=== PATIENT | male | born 1960 | race Caucasian/White ===

== ENCOUNTER 2020-09-12 08:42 | Emergency (ER) | payer OTHER ==
[2020-09-12] MEDS ORDERED: MEDROL 4MG DOSEP4 MG PO (11:43)
[2020-09-12] MEDS ORDERED: PERCOCET 10-321 EACH PO (11:43)
[2020-10-04] MEDS ORDERED: OXYCONTIN10 MG PO (14:31)
[2020-10-04] MEDS ORDERED: MORPHINE 30MG E30 MG PO (14:32)
[2020-10-04] MEDS ORDERED: DEXAMETHASONE 2M2 MG PO (14:32)
[2020-10-04] MEDS ORDERED: DAILY VALUE1 EACH PO (14:33)
[2020-10-04] MEDS ORDERED: PRAVASTATIN SOD20 MG PO (14:33)
[2020-10-04] MEDS ORDERED: PROTONIX 40MG T40 MG PO (14:33)
[2020-10-04] MEDS ORDERED: LISINOPRIL20 MG PO (14:33)
[2020-10-04] MEDS ORDERED: ELDERBERRY PO (14:34)
[2020-10-04] MEDS ORDERED: VITAMIN D PO (14:34)
[2020-10-04] MEDS ORDERED: FLONASE ALLER15.8 ML (14:35)
[2020-10-04] MEDS ORDERED: ZYRTEC10 M3 PO (14:35)
[2020-10-04] MEDS ORDERED: COLACE100 MG PO (14:35)
== END 2020-09-12 12:00 | disposition home or self-care (01) ==
LOC: FER 08:42
DX: M54.42 Lumbago with sciatica, left side (principal); M54.41 Lumbago with sciatica, right side; I10 Essential (primary) hypertension; F17.200 Nicotine dependence, unspecified, uncomplicated
CPT/HCPCS: 96372; 99283; J1170

== ENCOUNTER → 2020-10-07 | Day surgery (SDC) | payer OTHER ==
[~2020-10-07] VITALS: Ht 190.5 cm; Wt 105.2 kg
[~2020-10-07] MED LIST: CEFDINIR300 MG PO; COLACE100 MG PO; COMPAZINE10 MG PO; DAILY VALUE1 EACH PO; DEXAMETHASONE 2M2 MG PO; ELDERBERRY PO; ENSURE LIQUID237 ML PO; FLONASE ALLER15.8 ML; LASIX20 MG PO; LEVOTHYROXINE25 MC1 PO; LISINOPRIL20 MG PO; MEDROL 4MG DOSEP4 MG PO; MEGACE ORA6 TSP/1 OZ PO; MORPHINE 30MG E30 MG PO; OXYCODONE HCL10 MG PO; OXYCONTIN10 MG PO; PEPCID AC20 MG PO; PERCOCET 10-321 EACH PO; PRAVASTATIN SOD20 MG PO; PROTONIX 40MG T40 MG PO; VENTOLIN HFA IN18 GM INH; VITAMIN D PO; ZYRTEC10 M3 PO
[2020-10-07 10:56] LABS: BASOPHIL 0.3 % (0-2); EOSINOPHIL 0.3 % (0-5); HCT 39.9 % (42.0-52.0); HGB 13.3 g/dl (13.2-18.0); LYMPHOCYTE 12.7 % (15-48); MCH 30.5 pg (25.0-31.0); MCHC 33.3 g/dL (32.0-36.0); MCV 91.5 fL (78.0-100.0); MONOCYTE 9.5 % (0-12); MPV 8.8 fL (6.0-9.5); NEUTROPHIL 74.1 % (41-80); NRBC 0.1; PLT 417 K/uL (150-400); RBC 4.36 M/uL (4.70-6.00); RDW 13.8 % (11.5-14.0); WBC 17.4 K/uL (4.0-10.5)
[2020-10-07 11:13] LABS: INR 1.04 (0.9-1.2); PROTHROMBIN TIME 12.9 SECONDS (11.4-13.6); PTT 26.4 SECONDS (22.2-34.7)
== END | disposition home or self-care (01) ==
LOC: FAS 09:56
PROVIDERS: Anesthesiology
DX: C79.49 Secondary malignant neoplasm of other parts of nervous system (principal); K21.9 Gastro-esophageal reflux disease without esophagitis; M19.90 Unspecified osteoarthritis, unspecified site; F17.210 Nicotine dependence, cigarettes, uncomplicated; I10 Essential (primary) hypertension; Z20.822 Contact with and (suspected) exposure to COVID-19; Z91.041 Radiographic dye allergy status; Z79.899 Other long term (current) drug therapy; Z98.890 Other specified postprocedural states; Z80.0 Family history of malignant neoplasm of digestive organs; Z82.49 Family history of ischemic heart disease and other diseases of the circulatory system
CPT/HCPCS: 36415; 71045; 76000; 85025; 85610; 85730; C1788; J0690; J1644; J2250; J2405; J2704; J3010; J7120

== ENCOUNTER 2021-01-12 09:22 | Inpatient (IN) | payer OTHER ==
[~2021-01-12] VITALS: Ht 190.5 cm; Wt 104.4 kg
[~2021-01-12 09:22] MED LIST changes: -CEFDINIR300 MG PO; -COMPAZINE10 MG PO; -ENSURE LIQUID237 ML PO; -LASIX20 MG PO; -LEVOTHYROXINE25 MC1 PO; -MEGACE ORA6 TSP/1 OZ PO; -OXYCODONE HCL10 MG PO; -PEPCID AC20 MG PO; -VENTOLIN HFA IN18 GM INH
[2021-01-12 10:00] LABS: BASOPHIL 0.5 % (0-2); EOSINOPHIL 0 % (0-5); HCT 26.9 % (42.0-52.0); HGB 8.5 g/dl (13.2-18.0); LYMPHOCYTE 6.7 % (15-48); MCH 29.5 pg (25.0-31.0); MCHC 31.6 g/dL (32.0-36.0); MCV 93.4 fL (78.0-100.0); MONOCYTE 14.7 % (0-12); MPV 8.8 fL (6.0-9.5); NEUTROPHIL 67.3 % (41-80); PLT 398 K/uL (150-400); RBC 2.88 M/uL (4.70-6.00); RDW 24.2 % (11.5-14.0); WBC 20.2 K/uL (4.0-10.5)
[2021-01-12 10:21] LABS: ALBUMIN 2.4 g/dL (3.4-5.0); BILIRUBIN - TOTAL 1.3 mg/dL (0.2-1.0); BUN/CREAT RATIO (CALC) 19.3 RATIO; CREATININE 0.57 mg/dL (0.67-1.17); GLOBULIN (CALCULATION) 3.8 g/dL; TOTAL PROTEIN 6.2 g/dL (6.4-8.2)
[2021-01-12 11:15] LABS: CORONAVIRUS 2019 SARS-COV-2 NEGATIVE (NEGATIVE); INFLUENZA A NAA NEGATIVE (NEGATIVE)
[2021-01-12 11:55] LABS: LACTIC ACID 1.7 mmol/L (0.4-1.9)
[2021-01-12 13:19] LABS: BILIRUBIN 1+ mg/dL (NEGATIVE); BLOOD NEGATIVE Ery/uL (NEGATIVE); COLOR YELLOW (YELLOW); GLUCOSE (U) NORMAL (NORMAL); LEUKOCYTES NEGATIVE Leu/uL (NEGATIVE); NITRITE NEGATIVE (NEGATIVE); PROTEIN TRACE (LOW) mg/dL (NEGATIVE); SPECIFIC GRAVITY 1.025 (1.001-1.030); pH 5.5 (5.0-9.0)
[2021-01-12 13:44] LABS: AMORPHOUS URATES CRYSTALS LARGE; CLARITY TURBID (CLEAR); GRANULAR CASTS TRACE; TRIPLE PHOSPHATE CRYSTALS TRACE; URINARY RBC RARE
[2021-01-12] MEDS ORDERED: LEVOTHYROXINE25 MC1 PO (16:52)
[2021-01-12] MEDS ORDERED: COMPAZINE10 MG PO (16:54)
[2021-01-12] MEDS ORDERED: LASIX20 MG PO (16:54)
[2021-01-12] MEDS ORDERED: PEPCID AC20 MG PO (16:55)
[2021-01-12] MEDS ORDERED: ENSURE LIQUID237 ML PO (16:55)
[2021-01-13 07:04] LABS: BASOPHIL 0.5 % (0-2); EOSINOPHIL 0 % (0-5); HGB 8.8 g/dl (13.2-18.0); LYMPHOCYTE 6.5 % (15-48); MCH 29.7 pg (25.0-31.0); MCHC 31.4 g/dL (32.0-36.0); MCV 94.6 fL (78.0-100.0); MONOCYTE 13.3 % (0-12); MPV 8.9 fL (6.0-9.5); NEUTROPHIL 69.3 % (41-80); NRBC 1.3; PLT 375 K/uL (150-400); RBC 2.96 M/uL (4.70-6.00); RDW 24.4 % (11.5-14.0); WBC 20.2 K/uL (4.0-10.5)
[2021-01-13 07:23] LABS: BUN/CREAT RATIO (CALC) 23.1 RATIO; CREATININE 0.65 mg/dL (0.67-1.17); POTASSIUM 3.6 mmol/L (3.5-5.1)
[2021-01-13 11:12] LABS: RETICULOCYTE COUNT 2.7 % (1.0-2.0)
[2021-01-13 11:51] LABS: IRON % SATURATION 43.7 %SAT (20-50)
--- NOTE | 2021-01-13 12:40 | NUR ---
INFORMED DR. OSORIO OF PATIENTS H/R [id number]. AWAITING TEST RESULTS .NO NEW ORDER AT THIS TIME
[2021-01-13 12:58] LABS: FOLIC ACID (SERUM) 6.6 ng/mL (8.6-58.9)
--- NOTE | 2021-01-13 14:19 | NUR ---
01/13/21 Mr. Varela lives at home with his spouse. They do not have children nor any family that live locally. [facility]. He is currently receiving short term disability from [facility] and will move to correction disability in March. - Family has been advised to discuss eligibility for SSD with the [employer]. - Mr. Varela will need a rw, 3in1, and likely 02 at discharge as well as HH. [facility]. A referral was made to [facility].
[2021-01-14 04:41] LABS: ALBUMIN 2.3 g/dL (3.4-5.0); BILIRUBIN - TOTAL 1.4 mg/dL (0.2-1.0); BUN/CREAT RATIO (CALC) 27.1 RATIO; CREATININE 0.59 mg/dL (0.67-1.17); GLOBULIN (CALCULATION) 3.7 g/dL; POTASSIUM 3.5 mmol/L (3.5-5.1)
[2021-01-14 05:27] LABS: BASOPHIL 0.3 % (0-2); EOSINOPHIL 0 % (0-5); HCT 26.5 % (42.0-52.0); HGB 8.2 g/dl (13.2-18.0); LYMPHOCYTE 7.1 % (15-48); MCH 29.1 pg (25.0-31.0); MCHC 30.9 g/dL (32.0-36.0); MONOCYTE 11.1 % (0-12); MPV 9.4 fL (6.0-9.5); NEUTROPHIL 72.1 % (41-80); NRBC 1.6; PLT 373 K/uL (150-400); RBC 2.82 M/uL (4.70-6.00); RDW 24.5 % (11.5-14.0); WBC 21.4 K/uL (4.0-10.5)
--- NOTE | 2021-01-15 02:34 | NUR ---
01/14/21 2210 PT FOUND WITH O2 OFF AND ALL LEADS FOR TELE OFF AND PORT A CATH WAS DEACCESSED PER PT AND FOUND IN BED O2 SAT 88 CALLED HOUSESUPERVISOR FOR NEED OF 1 TO 1 SITTER FOR SAFETY ALL MEDICAL EQUIPMENT REAPPIED AND PORT A CATH REACCESSED WITH GREAT BLOOD RETURNED PT WILL HAVE 1 TO 1 CARE AT 2330
[2021-01-15 07:07] LABS: BASOPHIL 0.3 % (0-2); EOSINOPHIL 0 % (0-5); HCT 26.2 % (42.0-52.0); HGB 8.2 g/dl (13.2-18.0); LYMPHOCYTE 5.1 % (15-48); MCH 29.7 pg (25.0-31.0); MCHC 31.3 g/dL (32.0-36.0); MCV 94.9 fL (78.0-100.0); MONOCYTE 9.1 % (0-12); MPV 8.9 fL (6.0-9.5); NEUTROPHIL 77.3 % (41-80); NRBC 1.8; PLT 321 K/uL (150-400); RBC 2.76 M/uL (4.70-6.00); RDW 25.3 % (11.5-14.0); WBC 23.3 K/uL (4.0-10.5)
[2021-01-15 07:27] LABS: ALBUMIN 2.2 g/dL (3.4-5.0); BILIRUBIN - TOTAL 1.4 mg/dL (0.2-1.0); BUN/CREAT RATIO (CALC) 27.8 RATIO; CREATININE 0.72 mg/dL (0.67-1.17); FT4 (FREE T4) 1.4 ng/dL (0.76-1.46); GLOBULIN (CALCULATION) 3.1 g/dL; POTASSIUM 3.3 mmol/L (3.5-5.1); TOTAL PROTEIN 5.3 g/dL (6.4-8.2); URIC ACID 9.7 mg/dL (3.5-7.2)
[2021-01-16 05:45] LABS: BASOPHIL 0.3 % (0-2); EOSINOPHIL 0 % (0-5); HCT 26.1 % (42.0-52.0); HGB 8.2 g/dl (13.2-18.0); LYMPHOCYTE 4.6 % (15-48); MCH 29.7 pg (25.0-31.0); MCHC 31.4 g/dL (32.0-36.0); MCV 94.6 fL (78.0-100.0); MONOCYTE 5.8 % (0-12); MPV 8.5 fL (6.0-9.5); NEUTROPHIL 81.7 % (41-80); PLT 266 K/uL (150-400); RBC 2.76 M/uL (4.70-6.00); RDW 25.3 % (11.5-14.0); WBC 23.6 K/uL (4.0-10.5)
[2021-01-16 06:03] LABS: ALBUMIN 2.1 g/dL (3.4-5.0); BILIRUBIN - TOTAL 1.3 mg/dL (0.2-1.0); BUN/CREAT RATIO (CALC) 31.3 RATIO; CREATININE 0.67 mg/dL (0.67-1.17); GLOBULIN (CALCULATION) 3.5 g/dL; POTASSIUM 3.1 mmol/L (3.5-5.1); TOTAL PROTEIN 5.6 g/dL (6.4-8.2)
[2021-01-17 10:30] LABS: BASOPHIL 0.3 % (0-2); EOSINOPHIL 0 % (0-5); HCT 26.6 % (42.0-52.0); HGB 8.3 g/dl (13.2-18.0); LYMPHOCYTE 4.1 % (15-48); MCHC 31.2 g/dL (32.0-36.0); MONOCYTE 5.6 % (0-12); MPV 9.2 fL (6.0-9.5); NEUTROPHIL 82.9 % (41-80); NRBC 2.8; PLT 261 K/uL (150-400); RBC 2.77 M/uL (4.70-6.00); RDW 25.7 % (11.5-14.0)
--- NOTE | 2021-01-17 10:39 | NUR ---
01/17/21 Mr. Varela is nearing being ready for discharge. His spouse chose [facility], [facility]. Referrals have been sent to each facility.
[2021-01-17 10:55] LABS: ALBUMIN 2.1 g/dL (3.4-5.0); BILIRUBIN - TOTAL 1.1 mg/dL (0.2-1.0); BUN/CREAT RATIO (CALC) 30.5 RATIO; CREATININE 0.59 mg/dL (0.67-1.17); GLOBULIN (CALCULATION) 3.5 g/dL; POTASSIUM 3.3 mmol/L (3.5-5.1); TOTAL PROTEIN 5.6 g/dL (6.4-8.2)
[2021-01-18 06:04] LABS: BASOPHIL 0.4 % (0-2); EOSINOPHIL 0.1 % (0-5); HCT 26.5 % (42.0-52.0); HGB 8.4 g/dl (13.2-18.0); LYMPHOCYTE 4.2 % (15-48); MCH 30.2 pg (25.0-31.0); MCHC 31.7 g/dL (32.0-36.0); MCV 95.3 fL (78.0-100.0); MONOCYTE 6.8 % (0-12); NEUTROPHIL 80.3 % (41-80); NRBC 2.9; PLT 230 K/uL (150-400); RBC 2.78 M/uL (4.70-6.00); RDW 26.2 % (11.5-14.0)
[2021-01-18 06:06] LABS: WBC 22.4 K/uL (4.0-10.5)
[2021-01-18 06:22] LABS: ALBUMIN 2.1 g/dL (3.4-5.0); BILIRUBIN - TOTAL 2.1 mg/dL (0.2-1.0); BUN/CREAT RATIO (CALC) 35.7 RATIO; CREATININE 0.56 mg/dL (0.67-1.17); GLOBULIN (CALCULATION) 3.5 g/dL; TOTAL PROTEIN 5.6 g/dL (6.4-8.2)
--- NOTE | 2021-01-19 10:21 | NUR ---
01/19/21 [facility] has accepted Mr. Varela pending insurance approval. Report given to MS LES Jacobo.
[2021-01-20 04:05] LABS: BASOPHIL 0.4 % (0-2); EOSINOPHIL 0 % (0-5); HCT 25.3 % (42.0-52.0); HGB 8.2 g/dl (13.2-18.0); LYMPHOCYTE 5.4 % (15-48); MCH 30.3 pg (25.0-31.0); MCHC 32.4 g/dL (32.0-36.0); MCV 93.4 fL (78.0-100.0); MONOCYTE 8.3 % (0-12); MPV 8.9 fL (6.0-9.5); NEUTROPHIL 74.8 % (41-80); NRBC 5.5; PLT 210 K/uL (150-400); RBC 2.71 M/uL (4.70-6.00); RDW 26.5 % (11.5-14.0)
[2021-01-20 04:23] LABS: BUN/CREAT RATIO (CALC) 34.5 RATIO; CREATININE 0.55 mg/dL (0.67-1.17); POTASSIUM 4.3 mmol/L (3.5-5.1)
[2021-01-20 04:32] LABS: WBC 24.3 K/uL (4.0-10.5)
--- NOTE | 2021-01-20 15:13 | NUR ---
01/20/21 [facility] has accept Mr. Varela for dmission today. Patient meets criteria for EMS transport per Dr. Martin. Report given to Delia, garbage collection supervisor.
[2021-01-20] MEDS ORDERED: CEFDINIR300 MG PO (15:18)
[2021-01-20] MEDS ORDERED: OXYCODONE HCL10 MG PO (15:18)
[2021-01-20] MEDS ORDERED: VENTOLIN HFA IN18 GM INH (15:18)
[2021-01-20] MEDS ORDERED: MORPHINE 30MG E30 MG PO (15:18)
[2021-01-20] MEDS ORDERED: MEGACE ORA6 TSP/1 OZ PO (15:25)
== END 2021-01-20 18:35 | DRG 193 ==
LOC: FER 09:22 → FMS 14:06
PROVIDERS: Internal Medicine; ADMIT Allergy & Immunology Allergy
DX: J18.9 Pneumonia, unspecified organism (principal); G93.41 Metabolic encephalopathy; C78.7 Secondary malignant neoplasm of liver and intrahepatic bile duct; R18.0 Malignant ascites; C34.90 Malignant neoplasm of unspecified part of unspecified bronchus or lung; F05 Delirium due to known physiological condition; E83.52 Hypercalcemia; Z20.822 Contact with and (suspected) exposure to COVID-19; K21.9 Gastro-esophageal reflux disease without esophagitis; Z66 Do not resuscitate; I11.0 Hypertensive heart disease with heart failure; I50.9 Heart failure, unspecified; E78.5 Hyperlipidemia, unspecified; F03.90 Unspecified dementia, unspecified severity, without behavioral disturbance, psychotic disturbance, mood disturbance, and anxiety; F17.200 Nicotine dependence, unspecified, uncomplicated; D64.9 Anemia, unspecified; Z79.891 Long term (current) use of opiate analgesic; Z79.890 Hormone replacement therapy; Z79.899 Other long term (current) drug therapy; Z91.040 Latex allergy status; Z90.81 Acquired absence of spleen; Z98.1 Arthrodesis status; Z98.890 Other specified postprocedural states
CPT/HCPCS: 36415; 36600; 70470; 71045; 71250; 71275; 80048; 80053; 80202; 81001; 82607; 82728; 82746; 82803; 83540; 83550; 83605; 83880; 84145; 84439; 84443; 84484; 84550; 85025; 85379; 87040; 87449; 93005; 94010; 94640; 97110; 97162; 97166; 97530; 97530-GP; 97535; J0456; J0630; J0696; J1642; J1650; J1940; J2185; J2405; J3489; J7030; J7050; J7120; Q9967; U0002

== ENCOUNTER 2021-01-20 22:32 | Inpatient (IN) | payer OTHER ==
[~2021-01-20] VITALS: Ht 190.5 cm; Wt 113.9 kg
[~2021-01-20 22:32] MED LIST changes: +CEFDINIR300 MG PO; +COMPAZINE10 MG PO; +ENSURE LIQUID237 ML PO; +LASIX20 MG PO; +LEVOTHYROXINE25 MC1 PO; +MEGACE ORA6 TSP/1 OZ PO; +OXYCODONE HCL10 MG PO; +PEPCID AC20 MG PO; +VENTOLIN HFA IN18 GM INH
[2021-01-21 00:26] LABS: BASOPHIL 0.6 % (0-2); EOSINOPHIL 0 % (0-5); HGB 8.5 g/dl (13.2-18.0); LYMPHOCYTE 5.5 % (15-48); MCHC 32.7 g/dL (32.0-36.0); MCV 91.9 fL (78.0-100.0); MONOCYTE 8.1 % (0-12); MPV 9.6 fL (6.0-9.5); NEUTROPHIL 70.9 % (41-80); NRBC 7.5; PLT 213 K/uL (150-400); RBC 2.83 M/uL (4.70-6.00); RDW 26.5 % (11.5-14.0)
[2021-01-21 00:41] LABS: ALBUMIN 1.9 g/dL (3.4-5.0); BILIRUBIN - TOTAL 2.2 mg/dL (0.2-1.0); CREATININE 0.6 mg/dL (0.67-1.17); GLOBULIN (CALCULATION) 3.7 g/dL; POTASSIUM 4.2 mmol/L (3.5-5.1); TOTAL PROTEIN 5.6 g/dL (6.4-8.2)
[2021-01-21 00:49] LABS: WBC 25.1 K/uL (4.0-10.5)
[2021-01-21 00:50] LABS: LACTIC ACID 2.8 mmol/L (0.4-1.9)
[2021-01-21 01:39] LABS: BILIRUBIN 1+ mg/dL (NEGATIVE); BLOOD NEGATIVE Ery/uL (NEGATIVE); CLARITY HAZY (CLEAR); COLOR YELLOW (YELLOW); GLUCOSE (U) NORMAL (NORMAL); LEUKOCYTES NEGATIVE Leu/uL (NEGATIVE); NITRITE NEGATIVE (NEGATIVE); PROTEIN 1+ mg/dL (NEGATIVE); SPECIFIC GRAVITY 1.015 (1.001-1.030); UROBILINOGEN 0.2 mg/dL (0.2-1.0)
[2021-01-21 01:47] LABS: SQUAMOUS EPITHELIAL CELLS RARE; URINARY RBC RARE; URINARY WBC RARE
[2021-01-21 01:48] LABS: AMORPHOUS PHOSPHATE CRYSTALS TRACE; GRANULAR CASTS TRACE
--- NOTE | 2021-01-21 09:43 | NUR ---
01/21/21 Mr. Varela was discharged to [facility] on 01/20/21. Insurance approved patient's admission at [facility] through 01/26. [facility] will consider return after clinical approval.
--- NOTE | 2021-01-21 13:02 | NUR ---
PT IS AN OBSERVATION; WAS FROM [facility]
--- NOTE | 2021-01-21 17:23 | NUR ---
PT HAD A 26 OR MORE BEAT OF VTACH AT 1702 HEART RATE GOT HIGH AT 210 BEATS PER MINUTE SHOWN ON MONITOR DR CHAMBERS CAME INTO TH ROOM AND ASSESSED PATIENT DID A CAROTID MASSAGE 5MG OF IV LOPRESSOR WAS GIVEN BY SANTIAGO SALDANA PT RETURNED TO NORMAL SINUS RHYTHM AT 91 BEATS PER MINUTE
[2021-01-22 04:46] LABS: BASOPHIL 0.1 % (0-2); EOSINOPHIL 0.1 % (0-5); HCT 25.9 % (42.0-52.0); HGB 8.3 g/dl (13.2-18.0); MCH 30.2 pg (25.0-31.0); MCV 94.2 fL (78.0-100.0); MONOCYTE 8.8 % (0-12); MPV 9.1 fL (6.0-9.5); NRBC 10.9; PLT 199 K/uL (150-400); RBC 2.75 M/uL (4.70-6.00); RDW 27.5 % (11.5-14.0); WBC 24.7 K/uL (4.0-10.5)
[2021-01-22 05:06] LABS: ALBUMIN 1.8 g/dL (3.4-5.0); BILIRUBIN - TOTAL 2.4 mg/dL (0.2-1.0); BUN/CREAT RATIO (CALC) 28.6 RATIO; CREATININE 0.7 mg/dL (0.67-1.17); GLOBULIN (CALCULATION) 3.7 g/dL; MAGNESIUM 2.1 mg/dL (1.8-2.4); POTASSIUM 3.9 mmol/L (3.5-5.1); TOTAL PROTEIN 5.5 g/dL (6.4-8.2)
[2021-01-22 05:25] LABS: NEUTROPHIL 70.7 % (41-80)
--- NOTE | 2021-01-22 11:43 | NUR ---
ADVISED DR. CHAMBERS THAT PT IS OBS. HE STATED HE MAY CHANGE HIM TO INPATIENT HE BELIEVES PT WILL STAY A FEW MORE DAY. ADVISED DR. CHAMBERS AND NURSE THAT PT'S BED IS APPROVED AT [facility] UNTIL 01/26/2021, HOWEVER, [facility] MUST CLINIALLY APPROVE PT BEFORE HE RETURNS. FAXED CLINICALS TO [facility] AT [facility] THIS DATE.
--- NOTE | 2021-01-22 21:30 | NUR ---
PT HR WENT UP TO 210 AND SUSTAINED FOR A MINUTE. AUTO PAINTER HELPER NOTIFIED AND EKG WAS GOTTEN BUT PT HAD ALREADY COME OUT OF RHYTHM. AUTO PAINTER HELPER AT BEDSIDE AT THIS TIME. NO NEW ORDERS. NIGHTLY MEDICATIONS WERE GIVEN
--- NOTE | 2021-01-23 02:04 | NUR ---
PT LEFT AC IV WAS INFUSING AMIO GTT. SITE BECAME RED, HARD AND PAINFUL TO TOUCH. MORTICIAN HELPER NOTIFIED, IV REMOVED AND AMIO MOVED TO ANOTHER SITE. MORTICIAN HELPER TO FOLLOW UP. WILL CONTINUE TO MONITOR
--- NOTE | 2021-01-23 02:14 | NUR ---
HEALTH ANALYTICS CONSULTANT NOTIFIED OF AMIO GTT INFILTRATION. ICE PACK APPLIED TO IV SITE AFTER IV REMOVED. NO NEW ORDERS AT THIS TIME
[2021-01-23 02:15] LABS: BASOPHIL 0.1 % (0-2); EOSINOPHIL 0.2 & (0-5); HCT 23.8 % (42.0-52.0); HGB 7.9 g/dl (13.2-18.0); MCH 30.7 pg (25.0-31.0); MCHC 33.2 g/dL (32.0-36.0); MCV 92.6 fL (78.0-100.0); MONOCYTE 7.5 % (0-12); MPV 9.5 fL (6.0-9.5); PLT 185 K/uL (150-400); RBC 2.57 M/uL (4.70-6.00); RDW 26.9 % (11.5-14.0); WBC 26.56 K/uL (4.0-10.5)
[2021-01-23 02:19] LABS: INR 1.33 (0.9-1.2); PROTHROMBIN TIME 15.8 SECONDS (11.8-13.4)
[2021-01-23 02:22] LABS: NEUTROPHIL 57.3 % (41-80)
[2021-01-23 02:28] LABS: ALBUMIN 1.8 g/dL (3.4-5.0); BUN/CREAT RATIO (CALC) 29.4 RATIO; CREATININE 0.85 mg/dL (0.67-1.17); GLOBULIN (CALCULATION) 2.9 g/dL; POTASSIUM 3.3 mmol/L (3.5-5.1); TOTAL PROTEIN 4.7 g/dL (6.4-8.2)
--- NOTE | 2021-01-23 10:10 | NUR ---
INFORMED DR. CHABMERS THAT PATIENT COMPLAINED OF NAUSEA, CHEST PRESSURE AND HIS ARMS AND LEGS WERE BURNING. NO SVT NOTED DURING EPISODE. ALL VITAL SIGNS STABLE. BREATHING LABORED, BUT THIS IS UNCHANGED FROM PREVIOUS ASSESSMENT. NO NEW ORDERS OBTAINED.
[2021-01-24 04:20] LABS: BASOPHIL 0.1 % (0-2); EOSINOPHIL 0.4 & (0-5); HCT 24.3 % (42.0-52.0); HGB 7.6 g/dl (13.2-18.0); LYMPHOCYTE 18.7 % (15-48); MCH 30.2 pg (25.0-31.0); MCHC 31.3 g/dL (32.0-36.0); MCV 96.4 fL (78.0-100.0); MONOCYTE 6.3 % (0-12); MPV 9.5 fL (6.0-9.5); PLT 168 K/uL (150-400); RBC 2.52 M/uL (4.70-6.00); RDW 27.8 % (11.5-14.0); WBC 27.16 K/uL (4.0-10.5)
[2021-01-24 04:29] LABS: NEUTROPHIL 58.8 % (41-80)
[2021-01-24 04:38] LABS: ALBUMIN 2.2 g/dL (3.4-5.0); BILIRUBIN - TOTAL 2.7 mg/dL (0.2-1.0); BUN/CREAT RATIO (CALC) 29.3 RATIO; CREATININE 0.92 mg/dL (0.67-1.17); GLOBULIN (CALCULATION) 2.8 g/dL; MAGNESIUM 1.9 mg/dL (1.8-2.4); POTASSIUM 3.5 mmol/L (3.5-5.1)
--- NOTE | 2021-01-24 04:51 | NUR ---
0415-upon arrival to do pt's vitals, pt is asleep; periods of apnea; pulse ox show 70% on 2 liters. 0417- 4 liters sats 78% 0420-called RN to room and placed on 40% venti mask; up to 80% 0425-50% venti mask 83% glucose poc 78; PA to place order for 1/2 amp d50 0430-nonrebreather; PA and respiratory at bedside; we did switch out pulse ox and sats improved; will keep on nonrebreather while sleeping;
[2021-01-25 03:03] LABS: BASOPHIL 0.5 % (0-2); EOSINOPHIL 0.5 % (0-5); HCT 22.5 % (42.0-52.0); HGB 7.2 g/dl (13.2-18.0); LYMPHOCYTE 4.8 % (15-48); MCH 30.8 pg (25.0-31.0); MCV 96.2 fL (78.0-100.0); MONOCYTE 6.2 % (0-12); MPV 9.7 fL (6.0-9.5); NRBC 17.8; PLT 140 K/uL (150-400); RBC 2.34 M/uL (4.70-6.00); RDW 28.4 % (11.5-14.0); WBC 21.9 K/uL (4.0-10.5)
[2021-01-25 03:04] LABS: NEUTROPHIL 71.5 % (41-80)
[2021-01-25 03:10] LABS: ALBUMIN 2.6 g/dL (3.4-5.0); BILIRUBIN - TOTAL 3.2 mg/dL (0.2-1.0); BUN/CREAT RATIO (CALC) 28.7 RATIO; CREATININE 1.01 mg/dL (0.67-1.17); GLOBULIN (CALCULATION) 3.1 g/dL; POTASSIUM 3.1 mmol/L (3.5-5.1); TOTAL PROTEIN 5.7 g/dL (6.4-8.2)
[2021-01-26 06:26] LABS: BASOPHIL 0.6 % (0-2); EOSINOPHIL 0.6 % (0-5); HCT 25.3 % (42.0-52.0); HGB 7.9 g/dl (13.2-18.0); LYMPHOCYTE 5.4 % (15-48); MCH 30.3 pg (25.0-31.0); MCHC 31.2 g/dL (32.0-36.0); MCV 96.9 fL (78.0-100.0); MONOCYTE 5.6 % (0-12); MPV 10.5 fL (6.0-9.5); NEUTROPHIL 73.1 % (41-80); NRBC 18.2; PLT 158 K/uL (150-400); RBC 2.61 M/uL (4.70-6.00); RDW 29.2 % (11.5-14.0)
[2021-01-26 06:28] LABS: WBC 22.7 K/uL (4.0-10.5)
[2021-01-26 06:43] LABS: ALBUMIN 2.6 g/dL (3.4-5.0); BUN/CREAT RATIO (CALC) 28.3 RATIO; CREATININE 1.2 mg/dL (0.67-1.17); GLOBULIN (CALCULATION) 3.3 g/dL; POTASSIUM 3.8 mmol/L (3.5-5.1); TOTAL PROTEIN 5.9 g/dL (6.4-8.2)
--- NOTE | 2021-01-27 13:32 | NUR ---
01/27/21 Mr. Varela today. Condolences were extended to Ms. Varela.
== END 2021-01-27 11:00 | disposition expired | DRG 441 ==
LOC: FER 22:32 → FTCU 01-21 04:10
PROVIDERS: Allergy & Immunology Allergy; Emergency Medicine; Internal Medicine; Nurse Practitioner; ADMIT Internal Medicine
DX: K72.90 Hepatic failure, unspecified without coma (principal); J18.9 Pneumonia, unspecified organism; G93.41 Metabolic encephalopathy; I50.33 Acute on chronic diastolic (congestive) heart failure; J96.01 Acute respiratory failure with hypoxia; Z66 Do not resuscitate; Z51.5 Encounter for palliative care; K56.7 Ileus, unspecified; C78.7 Secondary malignant neoplasm of liver and intrahepatic bile duct; C34.90 Malignant neoplasm of unspecified part of unspecified bronchus or lung; I47.2 Ventricular tachycardia; M84.48XA Pathological fracture, other site, initial encounter for fracture; R18.8 Other ascites; Z20.822 Contact with and (suspected) exposure to COVID-19; I11.0 Hypertensive heart disease with heart failure; E78.5 Hyperlipidemia, unspecified; G89.29 Other chronic pain; D63.8 Anemia in other chronic diseases classified elsewhere; R33.9 Retention of urine, unspecified; Z92.3 Personal history of irradiation; Z92.21 Personal history of antineoplastic chemotherapy; Z79.82 Long term (current) use of aspirin; Z98.1 Arthrodesis status; Z90.81 Acquired absence of spleen; Z87.891 Personal history of nicotine dependence; Z91.041 Radiographic dye allergy status; Z79.51 Long term (current) use of inhaled steroids; Z79.891 Long term (current) use of opiate analgesic; Z79.899 Other long term (current) drug therapy; Z87.01 Personal history of pneumonia (recurrent); Z88.8 Allergy status to other drugs, medicaments and biological substances
CPT/HCPCS: 36415; 71045; 71260; 74018; 80053; 80202; 81001; 82140; 83605; 83735; 84484; 85025; 85610; 87040; 93005; 94010; 94640; C9113; J0282; J1650; J1940; J2270; J2405; J2543; J3370; J3475; J7030; J7040; J7050; J7060; P9046; Q9967; U0002